=== PATIENT | female | born 1960 | race Caucasian/White ===

== ENCOUNTER 2016-11-08 16:19 | Emergency (ER) | payer OTHER ==
[~2016-11-08] VITALS: Ht 157.5 cm; Wt 80.0 kg
[~2016-11-08 16:19] MED LIST: ASPIRIN PAL; ATORVASTATIN
[2016-11-08 16:21] VITALS: Ht 157.5 cm; Wt 80.0 kg
[2016-11-08] MEDS ORDERED: SOD CHLORIDE 0.9% 1,000 ML IV STA (20:32)
[2016-11-08] MEDS ORDERED: morphine 2 MG INJ IV STA (20:32)
[2016-11-08] MEDS ORDERED: ONDANSETRON 4 MG INJ IV STA (20:32)
[2016-11-08 21:20] LABS: ADD SCAN DIFF NO
[2016-11-08 21:22] LABS: BASOPHILS % 0.5 % (0.0-2.0); EOSINOPHILS # 0.1 10^3/ul (0.0-0.5); EOSINOPHILS % 1.8 % (0.0-7.0); HEMATOCRIT 40.5 % (37.0-47.0); HEMOGLOBIN 13.5 g/dl (12.0-16.0); LYMPHOCYTES # 2.3 10^3/ul (0.8-2.9); LYMPHOCYTES % 38.5 % (15.0-51.0); MEAN CORPUSCULAR HEMOGLOBIN 31.3 pg (29.0-33.0); MEAN CORPUSCULAR HGB CONC 33.3 g/dl (32.0-37.0); MEAN PLATELET VOLUME 11.5 fl (7.4-10.4); MONOCYTE # 0.4 10^3/ul (0.3-0.9); MONOCYTES % 6.2 % (0.0-11.0); NEUTROPHIL # 3.2 10^3/ul (1.6-7.5); NEUTROPHILS % 52.8 % (39.0-77.0); PLATELET COUNT 209 10^3/UL (140-415); RED BLOOD COUNT 4.31 10^6/ul (4.20-5.40); RED CELL DISTRIBUTION WIDTH 12.2 % (11.5-14.5)
[2016-11-08 21:23] LABS: ADD UMIC NO; URINE BILIRUBIN (Dip) NEGATIVE (NEGATIVE); URINE BLOOD (Dip) NEGATIVE (NEGATIVE); URINE COLOR LT. YELLOW (YELLOW); URINE GLUCOSE (Dip) NEGATIVE (NEGATIVE); URINE KETONES (Dip) NEGATIVE (NEGATIVE); URINE LEUKOCYTE ESTERASE (Dip) NEGATIVE (NEGATIVE); URINE NITRITE (Dip) NEGATIVE (NEGATIVE); URINE TOTAL PROTEIN (Dip) NEGATIVE (NEGATIVE); URINE UROBILINOGEN (Dip) 0.2 E.U./dL (0.1-1.0)
[2016-11-08 21:38] LABS: ALBUMIN 5.2 g/dl (3.3-4.9); ALBUMIN/GLOBULIN RATIO 1.62; BILIRUBIN,INDIRECT 0.6 mg/dl (0-1.1); BILIRUBIN,TOTAL 0.6 mg/dl (0.2-1.3); CALCIUM 9.8 mg/dl (8.4-10.2); CREATININE 0.72 mg/dl (0.44-1.00); POTASSIUM 3.9 mmol/L (3.5-5.1); TOTAL PROTEIN 8.4 g/dl (6.1-8.1)
[2016-11-08] MEDS ORDERED: CALC-516 PO (22:11)
[2016-11-08] MEDS ORDERED: ATOR40TA68 PO (22:11)
[2016-11-08] MEDS ORDERED: MULT-853 PO (22:11)
[2016-11-08] MEDS ORDERED: ALEN70TA30 PO (22:11)
[2016-11-08] MEDS ORDERED: FLUT16SP17 NASAL (22:11)
[2016-11-08] MEDS ORDERED: ASPI81TA3 PO (22:11)
[2016-11-08] MEDS ORDERED: CETI5SOL PO (22:11)
[2016-11-08] MEDS ORDERED: MECL-77 PO (22:11)
--- NOTE | 2016-11-08 22:44 | RADRPT ---
PROCEDURE: CT ABDOMEN/PELVIS WITHOUT CONTRAST CLINICAL INDICATION: 56-year-old female with left sided abdominal pain. TECHNIQUE: The study was performed utilizing a [employer] VCT 64-slice CT scanner. Direct axia l sections were obtained through the abdomen and pelvis without the use of intravenous contrast mate rial. Sagittal and coronal reformations were obtained. One or more of the following dose reduction t echniques were utilized: automated exposure control, adjustment of the mA and/or kV according to pat ient's size or use of iterative reconstruction technique. The images were reviewed on a PACS workst [employer]. CTD/vol = 16.1 mGy; Total Exam DLP = 825.1 mGy-cm. COMPARISON: None. FINDINGS: The lung bases are unremarkable. There is no evidence for significant pleural effusion. The liver has a normal size and contour. There is a small ovoid cystic focus within the right lobe of the kaitlin er on axial image 3-25 measuring approximately 7 x 6 x 6 mm. There is an additional cystic focus wi thin the right lobe of the liver on axial image 3-40 measuring approximately 8 x 5 mm. There is a s ubtle small ovoid hypodense focus within the right lobe of the liver on axial image 3-20 measuring 3 x 3 mm which is too small to characterize by CT criteria. No intrahepatic nor extrahepatic biliary ductal dilatation is seen. The gallbladder demonstrates no wall thickening nor pericholecystic fluid . No biliary stones are evident. The pancreas is without areas of abnormal attenuation. The spleen is identified and has a normal size without abnormal density. The adrenal glands are unremarkable. T he right kidney is without abnormal density, calculi or obstruction. There is a nonobstructing calculus within the upper pole of the left kidney measuring approximately 8 x 8 x 5 mm. There are a couple of additional the adjacent nonobstructing left upper pole renal calculi. There is no eviden ce for hydroureteronephrosis. The urinary bladder contains urine. There is a small umbilical hernia with an opening of 5 x 7 mm containing fat. There is mild retained stool within the colon without o bstruction. The appendix is not visualized however there is no periappendiceal inflammatory changes . The uterus is elongated with a lobular appearance. There is dilated tubular structure within the right adnexal region which may represent unopacified bowel however hydrosalpinx cannot be totally e xcluded. This is best seen on coronal image 601-59. There are phleboliths within the pelvis. Ther e is no significant free fluid. The aortoiliac vessels are calcified but without aneurysmal dilatati on. Degenerative changes are present within the spine. Multiple small calcified bilateral gluteal s oft tissue injection granulomata are noted. IMPRESSION: 1. Small hepatic cysts. 2. Nonobstructing left upper pole renal calculi. 3. Small umbilical hernia containing fat. 4. Mild retained stool within the proximal colon without obstruction. 5. Right adnexal dilated tubular structure which may represent unopacified bowel however hydrosalpi nx cannot be excluded. Further evaluation with a pelvic ultrasound may be helpful. 6. Vascular calcifications. 7. Degenerative changes within the spine. .Robert Roman MD, Date Time Electronically viewed and signed by .Robert Roman MD, on 11/08/2016 22:43 .M/
--- NOTE | 2016-11-09 00:14 | RADRPT ---
PROCEDURE: US Pelvis. CLINICAL INDICATION: Pelvic structure noted on CT, pelvic pain TECHNIQUE: Multiple sonographic images of the pelvis were obtained utilizing a transabdominal and endovaginal technique. The images were reviewed on a PACS workstation. COMPARISON: CT abdomen and pelvis without contrast of 11/08/2016 FINDINGS: The uterus measures 8.8 x 3.2 x 5.6 cm and is unremarkable. The thickness of the endometrium equals 3.3 mm. The right ovary measures 2 x 1.4 x 2.3 cm and is unremarkable. The left ovary measures 2.9 x 1.7 x 1.1 cm and is unremarkable. Color flow and spectral analysis demonstrates normal arterial f low in both ovaries. No adnexal mass or free intrapelvic fluid is seen. No right hydrosalpinx is se en. Peristalsising bowel seen in the right adnexal region and elsewhere in the pelvis. IMPRESSION: No abnormality seen. Please see above. RPTAT: HJES .Hayden Johnson MD, MD Date Time Electronically viewed and signed by .Hayden Johnson MD, on 11/09/2016 00:14 .S/
--- NOTE | 2016-11-09 02:00 | ERA ---
ER Documentation Chief Complaint Date/Time DATE: 11/09/16 TIME: 01:58 Chief Complaint AP X 1 WEEK HPI This is a 56-year-old female, with abdominal pain for 1 week. Denies any fevers or chills. Denies any nausea vomiting. Denies any urinary symptoms. Pain is mild to moderate intensity. No change in bowel or bladder habits. No change in prandial habits. No trauma. No other current complaints. Pain does not localize. ROS All systems reviewed and are negative except as per history of present illness. Medications Home Meds Reported Medications Alendronate Sodium* (Fosamax*) 70 Mg Tablet, 70 MG PO Q7D, #4 TAB TAKES EVERY Tuesday11/08/16 Atorvastatin* (Atorvastatin*) 40 Mg Tablet, 40 MG PO QHS, #30 TAB 11/08/16 Fluticasone Propionate* (Fluticasone Propionate* Nasal) 50 Mcg/[place] - 16 Gm [place].susp, 2 SPRAYS NASAL DAILY, #1 BOTTLE TO EACH NOSTRIL 11/08/16 Cetirizine Hcl* (Cetirizine Hcl*) 5 Mg/5 Ml Solution, 10 MG PO DAILY, #300 ML 11/08/16 Aspirin* (Aspirin* Chew) 81 Mg Tab.chew, 81 MG PO DAILY, TAB.CHEW 11/08/16 Meclizine Hcl* (Meclizine Hcl*) 25 Mg Tablet, 25 MG PO Q8H Y for DIZZINESS, TAB 11/08/16 Calcium Carbonate/Vitamin D3 (OYSTER SHELL CALCIUM TABLET) 1 Each Tablet, 1 EACH PO, TAB 11/08/16 Multivits-Min/Iron/FA/Lutein (Centrum Silver Women Tablet) 1 Each Tablet, 1 EACH PO, TAB 11/08/16 Discontinued Reported Medications [Aspirin] No Conflict Check, 81 MG PAL 05/04/16 [Atorvastatin] No Conflict Check 05/04/16 Allergies Allergies: Coded Allergies: No Known Allergy (Unverified , 11/08/16) PMhx/Soc Medical and Surgical Hx: pt denies Medical Hx History of Surgery: Yes (c/section x1) Anesthesia Reaction: No Hx Neurological Disorder: No Hx Respiratory Disorders: No Hx Cardiac Disorders: No Hx Psychiatric Problems: No Hx Miscellaneous Medical Probl: Yes (HYPERLIPIDEMIA) Hx Alcohol Use: No Hx Substance Use: No Hx Tobacco Use: No Smoking Status: Never smoker Physical Exam Vitals Vital Signs Date Time Temp Pulse Resp B/P Pulse Ox O2 Delivery O2 Flow Rate FiO2 11/08/16 21:16 66 16 147/75 100 Room Air 11/08/16 16:21 99.1 83 18 146/92 99 Physical Exam Const: [] Head: Atraumatic Eyes: Normal Conjunctiva ENT: Normal External Ears, Nose and Mouth. Neck: Full range of motion..~ No meningismus. Resp: Clear to auscultation bilaterally Cardio: Regular rate and rhythm, no murmurs Abd: Soft, non tender, non distended. Normal bowel sounds Skin: No petechiae or rashes Back: No midline or flank tenderness Ext: No cyanosis, or edema Neur: Awake and alert Psych: Normal Mood and Affect Result Diagram: 11/08/16209911/08/16 2100 Results 24 hrs Laboratory Tests Test 11/08/16 21:00 White Blood Count 6.010^3/ul Red Blood Count 4.3110^6/ul Hemoglobin 13.5g/dl Hematocrit 40.5% Mean Corpuscular Volume 94.0fl Mean Corpuscular Hemoglobin 31.3pg Mean Corpuscular Hemoglobin Concent 33.3g/dl Red Cell Distribution Width 12.2% Platelet Count 10315^3/UL Mean Platelet Volume 11.5fl Neutrophils % 52.8% Lymphocytes % 38.5% Monocytes % 6.2% Eosinophils % 1.8% Basophils % 0.5% Nucleated Red Blood Cells % 0.0/100WBC Neutrophils # 3.210^3/ul Lymphocytes # 2.310^3/ul Monocytes # 0.410^3/ul Eosinophils # 0.110^3/ul Basophils # 0.010^3/ul Nucleated Red Blood Cells # 0.010^3/ul Urine Color LT. YELLOW Urine Clarity CLEAR Urine pH 5.0 Urine Specific Barrett 1.025 Urine Ketones NEGATIVE Urine Nitrite NEGATIVE Urine Bilirubin NEGATIVE Urine Urobilinogen 0.2 E.U./dL Urine Leukocyte Esterase NEGATIVE Urine Hemoglobin NEGATIVE Urine Glucose NEGATIVE% Urine Total Protein NEGATIVE Sodium Level 144mmol/L Potassium Level 3.9mmol/L Chloride Level 108mmol/L Carbon Dioxide Level 26mmol/L Anion Gap 14 Blood Urea Nitrogen 13mg/dl Creatinine 0.72mg/dl Glucose Level 81mg/dl Calcium Level 9.8mg/dl Total Bilirubin 0.6mg/dl Direct Bilirubin 0.00mg/dl Indirect Bilirubin 0.6mg/dl Aspartate Amino Transf (AST/SGOT) 42IU/L Alanine Aminotransferase (ALT/SGPT) 50IU/L Alkaline Phosphatase 82IU/L Total Protein 8.4g/dl Albumin 5.2g/dl Globulin 3.20g/dl Albumin/Globulin Ratio 1.62 Lipase 121U/L Current Medications Medications (Trade) Dose Ordered Sig/Theresa Route PRN Reason Start Time Stop Time Status Last Admin Dose Admin Sodium Chloride (NS) 1,000 ml @ 1,000 mls/hr Q1H STAT IV 11/08/16 20:32 11/08/16 21:31 DC 11/08/16 21:04 Morphine Sulfate (morphine) 2 mg ONCE STAT IV 11/08/16 20:32 11/08/16 20:34 DC 11/08/16 21:04 Ondansetron HCl (Zofran Inj) 4 mg ONCE STAT IV 11/08/16 20:32 11/08/16 20:34 DC 11/08/16 21:04 Procedures/MDM Medical decision-making: Patient has a nonsurgical abdomen on serial abdominal exams here. She had questionable hydrosalpinx on CT, but this was shown to be not the case on pelvic ultrasound. At this point she has not differentiated abdominal pain. She will be discharged home with tramadol and Zofran. She is to follow-up in 8 hours for serial abdominal exams. Return sooner for any return of or worsening of symptoms. Departure Diagnosis: Primary Impression: Abdominal pain Qualified Code: R10.84 - Generalized abdominal pain Condition: Stable ASAD ORTEGA Nov 09, 2016 02:00
[2016-11-09] MEDS ORDERED: ONDA4TAB14 PO (02:01)
[2016-11-09] MEDS ORDERED: TRAM50TA2 PO (02:01)
[2016-11-09 02:14] VITALS: BP 113/64; PULSE 65; RESP 16
== END 2016-11-09 02:16 | disposition home or self-care (01) ==
LOC: E/R 16:19
DX: R10.84 Generalized abdominal pain (principal); R40.2252 Coma scale, best verbal response, oriented, at arrival to emergency department; R40.2142 Coma scale, eyes open, spontaneous, at arrival to emergency department; R40.2362 Coma scale, best motor response, obeys commands, at arrival to emergency department; Z79.82 Long term (current) use of aspirin
CPT/HCPCS: 74176; 76830; 76856; 80053; 81003; 83690; 85025; J2270; J2405; J7030; 36415; 96374; 96375

== ENCOUNTER 2017-02-14 05:19 | Day surgery (SDC) | payer OTHER ==
[2017-02-14] VITALS (14 sets, daily range): BP systolic 88–127; BP diastolic 58–84; PULSE 54–66; RESP 11–18; Ht 154.9 cm; Wt 65.7 kg
[~2017-02-14] VITALS: Ht 154.9 cm; Wt 65.7 kg
[~2017-02-14 05:19] MED LIST changes: +ALEN70TA30 PO; +ASPI81TA3 PO; -ASPIRIN PAL; +ATOR40TA68 PO; -ATORVASTATIN; +CALC-516 PO; +CETI5SOL PO; +FLUT16SP17 NASAL; +MECL-77 PO; +MULT-853 PO; +ONDA4TAB14 PO; +TRAM50TA2 PO
[2017-02-14] MEDS ORDERED: SOD CHLORIDE 0.9% 1,000 ML IV SCH (06:00)
[2017-02-14] MEDS ORDERED: CEFAZOLIN 2 GM/50 ML (PMX) 50 ML IVPB SCH (06:00)
--- NOTE | 2017-02-14 06:40 | RADRPT ---
PROCEDURE: XR Chest. CLINICAL INDICATION: Preop, back mass TECHNIQUE: AP Portable chest. COMPARISON: No pertinent prior examinations were submitted for comparison. FINDINGS: The cardiomediastinal silhouette is normal. The aorta is calcified and tortuous. No focal consolidat ion, pleural effusion or pneumothorax is seen. The osseous structures are intact. IMPRESSION: No radiographic evidence of acute cardiopulmonary disease. Aortic atherosclerosis. Physician Megan Date Time Electronically viewed and signed by Alicja Metzger Physician on 02/14/2017 06:39 CS/
[2017-02-14 06:46] LABS: BASOPHILS % 0.8 % (0.0-2.0); EOSINOPHILS # 0.1 10^3/ul (0.0-0.5); EOSINOPHILS % 2.6 % (0.0-7.0); HEMATOCRIT 36.3 % (37.0-47.0); HEMOGLOBIN 12.3 g/dl (12.0-16.0); LYMPHOCYTES # 2.4 10^3/ul (0.8-2.9); LYMPHOCYTES % 47.7 % (15.0-51.0); MEAN CORPUSCULAR HEMOGLOBIN 32.2 pg (29.0-33.0); MEAN CORPUSCULAR HGB CONC 33.9 g/dl (32.0-37.0); MEAN PLATELET VOLUME 12.1 fl (7.4-10.4); MONOCYTE # 0.4 10^3/ul (0.3-0.9); MONOCYTES % 7.9 % (0.0-11.0); NEUTROPHILS % 40.8 % (39.0-77.0); PLATELET COUNT 170 10^3/UL (140-415); RED BLOOD COUNT 3.82 10^6/ul (4.20-5.40); RED CELL DISTRIBUTION WIDTH 12.9 % (11.5-14.5); WHITE BLOOD COUNT 4.9 10^3/ul (4.8-10.8)
[2017-02-14] MEDS ORDERED: CEFAZOLIN 1 GM INJ ONE (07:00)
[2017-02-14] MEDS ORDERED: SEVOFLURANE 15 MIN ONE (07:00)
[2017-02-14] MEDS ORDERED: LIDOCAINE 2% (MDV) 20 ML INJ ONE (07:07)
[2017-02-14] MEDS ORDERED: BUPIVACAINE 0.5% (SDV) 30 ML INJ ONE (07:07)
[2017-02-14 07:15] LABS: INR 1.02; PROTIME 13.4 Sec (12.2-14.2)
[2017-02-14 07:16] LABS: PARTIAL THROMBOPLASTIN TIME 34.9 Sec (25.0-35.0)
[2017-02-14 07:24] LABS: ALBUMIN 3.8 g/dl (3.3-4.9); ALBUMIN/GLOBULIN RATIO 1.22; BILIRUBIN,INDIRECT 0.4 mg/dl (0-1.1); BILIRUBIN,TOTAL 0.4 mg/dl (0.2-1.3); TOTAL PROTEIN 6.9 g/dl (6.1-8.1)
[2017-02-14 07:28] LABS: CALCIUM 9.3 mg/dl (8.4-10.2); CREATININE 0.66 mg/dl (0.44-1.00); POTASSIUM 4.4 mmol/L (3.5-5.1)
[2017-02-14] MEDS ORDERED: FENTAnyl 50 MCG/ML VIAL ONE (07:29)
[2017-02-14] MEDS ORDERED: BUPIVACAINE 0.25% (MPF) 30 ML INJ ONE (07:40)
[2017-02-14] MEDS ORDERED: LIDOCAINE 2% (SDV) 5 ML INJ ONE (07:48)
[2017-02-14] MEDS ORDERED: PROPOFOL 20 ML ONE (07:48)
[2017-02-14] MEDS ORDERED: DEXAMETHASONE 4 MG/ML 1 ML INJ ONE (07:49)
[2017-02-14] MEDS ORDERED: ONDANSETRON 4 MG INJ ONE (07:49)
[2017-02-14] MEDS ORDERED: HYDROCODONE/APAP (5/325) TAB PO ONE (08:00)
--- NOTE | 2017-02-14 08:01 | OPR ---
Date/Time of Note Date/Time of Note DATE: 02/14/17 TIME: 07:55 Operative Report Procedure Date: Feb 14, 2017 Preoperative Diagnosis right upper back mass Postoperative Diagnosis same Operation Performed 1. excision of right upper back mass 4 cm mass and 4 cm incision 2. localized adjacent tissue transfer with the use of skin flaps 8 sq cm defect 3. therapeutic injection of subcutaneous marcaine cpt code 89154 Surgeon Carlo Munguia Anesthesia Type: general Estimated Blood Loss: 0 - 10 ml's Specimen: none Specimens right upper back mass Grafts/Implants: none Complications: no Indications This is a 56-year-old female with right upper back mass. She requests surgical excision. Risks alternatives benefits personally discussed the patient. Patient expresses understanding consents to the operation. Procedure Description Patient is taken to the OR and prepped and draped in usual sterile fashion. Surgical timeout was performed. IV antibiotics were given. Transverse incision was made over the right upper back mass with a 15 blade. Dissection cautery was carried onto the mass and circumferential excise including part of the skin. Hemostasis is established. Irrigation is used. Due to the large tissue defect localized adjacent tissue transfer with these of skin flaps were performed. Multilayer closure with interrupted 3-0 Vicryl and skin allison. There appears to contains Marcaine is injected throughout the incision site. Dressings were applied. Kristine MUNGUIA Feb 14, 2017 08:01
[2017-02-14] MEDS ORDERED: METOCLOPRAMIDE 10 MG INJ IV PRN (08:30)
[2017-02-14] MEDS ORDERED: KETOROLAC 30 MG INJ IV PRN (08:30)
[2017-02-14] MEDS ORDERED: LABETALOL HCL 20MG INJ IV PRN (08:30)
[2017-02-14] MEDS ORDERED: ONDANSETRON 4 MG INJ IV PRN (08:30)
[2017-02-14] MEDS ORDERED: OXYCODONE/ACETAMINOPHEN (5/325) TAB PO PRN ×2 (08:30)
[2017-02-14] MEDS ORDERED: MEPERIDINE 25 MG INJ IV PRN (08:30)
[2017-02-14] MEDS ORDERED: hydrALAzine 20 MG INJ IV PRN (08:30)
[2017-02-14] MEDS ORDERED: EPHEDrine SULFATE 50 MG/5 ML SYG IV PRN (08:30)
[2017-02-14] MEDS ORDERED: FENTAnyl 50 MCG/ML VIAL IV PRN ×3 (08:30)
[2017-02-14] MEDS ORDERED: DIPHENHYDRAMINE 50 MG INJ IV PRN (08:30)
--- NOTE | 2017-02-16 00:12 | RADRPT ---
Vent Rate: 63 bpm RR Interval: 0 msec MT Interval: 162 msec QRS Duration: 82 msec QT Interval: 418 msec QTC Interval: 427 msec P-R-T [place]: 56 - 48 - 64 degrees Normal sinus rhythm Normal ECG Electronically Signed By: Juan Mariee [id number]
== END 2017-02-14 09:36 | disposition home or self-care (01) ==
LOC: SDS 05:19
PROVIDERS: ATTEND Surgery
DX: L72.0 Epidermal cyst (principal); E11.9 Type 2 diabetes mellitus without complications
CPT/HCPCS: 14000; 71010; 80053; 82962; 85025; 85610; 85730; 88307; 93005; J0690; J1100; J2405; J3010; Z7512; Z7610

== ENCOUNTER 2017-12-21 05:59 | Day surgery (SDC) | END 2017-12-21 10:40 | disposition home or self-care (01) ==

== ENCOUNTER 2018-10-06 19:06 | Emergency (ER) | payer OTHER ==
[~2018-10-06] VITALS: Ht 157.5 cm; Wt 68.0 kg
[~2018-10-06 19:06] MED LIST changes: -ALEN70TA30 PO; +ALEN70TA5 PO; -ASPI81TA3 PO; -CALC-516 PO; +CALC1TAB79 PO; -MECL-77 PO; -ONDA4TAB14 PO; -TRAM50TA2 PO
[2018-10-06 19:08] VITALS: Ht 157.5 cm; Wt 68.0 kg
[2018-10-06] MEDS ORDERED: D-ME473S2 PO (20:01)
[2018-10-06] MEDS ORDERED: BENZ200C68 PO (20:01)
[2018-10-06 20:19] VITALS: BP 148/67; PULSE 82; RESP 20
--- NOTE | 2018-10-07 01:40 | ERD ---
ER Documentation Chief Complaint Chief Complaint throat pain, cough x1 week HPI 58-year-old female with no significant past medical history presenting to the emergency department complaining of intermittent cough for the past 1 week. She describes a cough is dry associated with the sore throat. She took NyQuil at home with some relief. Symptoms are overall worse during the night. She denies any fevers, chills, abdominal pain, nausea, vomiting, diarrhea, sick contacts, or other symptoms currently. ROS All systems reviewed and are negative except as per history of present illness. Medications Home Meds Active Scripts Dextromethorphan Hb-Promethazine Hcl* (Promethazine DM* Syrup) 473 Ml Syrup, 5 ML PO Q6 PRN for COUGH, #120 ML Prov:ASAD ARAUZ PA-C 10/06/18 Benzonatate* (Benzonatate*) 200 Mg Capsule, 200 MG PO TID PRN for COUGH, #15 CAP Prov:ASAD ARAUZ PA-C 10/06/18 Reported Medications Calcium Carbonate/Vitamin D3 ([place]co 500+D Tablet) 1 Each Tablet, 1 EACH PO BID, TAB 12/21/17 Alendronate Sodium* (Fosamax*) 70 Mg Tablet, 70 MG PO Q7D, #4 TAB 12/21/17 Atorvastatin* (Atorvastatin*) 40 Mg Tablet, 40 MG PO QHS, #30 TAB 11/08/16 Fluticasone Propionate* (Fluticasone Propionate* Nasal) 50 Mcg/[place] - 16 Gm [place].susp, 2 SPRAYS NASAL DAILY, #1 BOTTLE TO EACH NOSTRIL 11/08/16 Cetirizine Hcl* (Cetirizine Hcl*) 5 Mg/5 Ml Solution, 10 MG PO DAILY, #300 ML 11/08/16 Multivits-Min/Iron/FA/Lutein (Centrum Silver Women Tablet) 1 Each Tablet, 1 EACH PO, TAB 11/08/16 Allergies Allergies: Coded Allergies: No Known Allergy (Unverified , 12/21/17) PMhx/Soc History of Surgery: Yes (mass removal from back, c section. ) Anesthesia Reaction: No Hx Neurological Disorder: No Hx Respiratory Disorders: No Hx Cardiac Disorders: Yes (hich cholesterol ) Hx Psychiatric Problems: No Hx Miscellaneous Medical Probl: No Hx Alcohol Use: No Hx Substance Use: No Hx Tobacco Use: No Smoking Status: Never smoker FmHx Family History: No diabetes Physical Exam Vitals Vital Signs Date Temp Pulse Resp B/P (MAP) Pulse Ox O2 O2 Flow FiO2 Time Delivery Rate 10/06/18 98.7 82 20 148/67 99 Room Air 20:19 (94) 10/06/18 97.2 79 20 167/88 99 19:08 (114) Physical Exam Const: No acute distress Head: Atraumatic Eyes: Normal Conjunctiva ENT: Normal External Ears, Nose and Mouth. Neck: Full range of motion. No meningismus. Resp: Clear to auscultation bilaterally Cardio: Regular rate and rhythm, no murmurs Skin: No petechiae or rashes Back: No midline or flank tenderness Ext: No cyanosis, or edema Neur: Awake and alert Psych: Normal Mood and Affect Procedures/MDM 50-year-old female presenting to the emergency department complaining of cough. Patient is nontoxic, well-appearing, afebrile. The patient's clinical presentation is very consistent with an acute viral syndrome. The patient does not exhibit any clinical signs or symptoms concerning for serious bacterial infection or systemic illness. Based on history and clinical exam findings the patient does not appear to have evidence of pneumonia, strep pharyngitis, urinary tract infection, bacteremia, sepsis, or meningitis. For these reasons I do not believe it is necessary to obtain laboratory testing or diagnostic imaging. I believe it would be appropriate for symptom control, and close outpatient primary care follow-up. Based on patient's history of present illness and physical examination the decision was made to discharge. There is no evidence of life threatening injuries or illnesses at this time. On re-examination, patient resting in no distress, stable vital signs, reports feeling better and safe for discharge with outpatient follow up with PMD in 1-2 days. Patient given return precautions. Patient's blood pressure was elevated (>120/80) but appears stable without evidence of hypertension emergency or urgency. The patient is to follow-up and pursue outpatient monitoring and therapy with their primary care physician within 1 week and return immediately if they have any new, worsening, or concerning symptoms. Disclaimer: Inadvertent spelling and grammatical errors are likely due to EHR/dictation software use and do not reflect on the overall quality of patient care. Also, please note that the electronic time recorded on this note does not necessarily reflect the actual time of the patient encounter. Departure Diagnosis: Primary Impression: Cough Condition: Fair Patient Instructions: Cough, Chronic, Uncertain Cause, (Adult) [facility]errals: [facility] Usted se eisenberg hecho un examen mdico de control que le indica que no est en angelica condicin que requiera tratamiento urgente en el Departamento de Emergencia. Un estudio ms profundo y el tratamiento de huynh condicin pueden esperar sin ningn riesgo hasta que usted sea atendida/o en el consultorio de huynh mdico o angelica clnica. Es responsabilidad suya arreglar angelica znia para el seguimiento del oli. MANEJO DE CONDICIONES NO URGENTES EN EL FUTURO 1) Si usted tiene un mdico de atencin primaria: Usted debera llamar a huynh mdico de atencin primaria antes de venir al departamento de emergencia. Despus de las horas de consultorio, huynh doctor o huynh asociado/a est disponible por telfono. El mdico o enfermero de mason en el servicio telefnico puede asesorarle por miguel angel medio para atender el problema, o oli contrario se puede programar angelica zina. 2) Si usted no tiene un mdico de atencin primaria: Llame al mdico o clnica de referencia que aparece abajo mary lou las horas de consultorio para hacer angelica zina para que le vean. CLINICAS: [facility] [phone] [facility] [phone] [facility] [phone] [place] [phone] [place] [phone] [facility]. [phone] Additional Instructions: Llame al doctor MAANA y jann angelica ZINA PARA DENTRO DE 1-2 BARRON.Dgale a la secretaria que nosotros le instruimos hacer esta zina.Avise o llame si huynh condicin se empeora antes de la zina. Regresa aqui si peor o no mejor. ASAD ARAUZ PA-C October 07, 2018 01:40
== END 2018-10-06 20:20 | disposition home or self-care (01) ==
LOC: FTE 19:06
DX: R05 Cough (principal)
CPT/HCPCS: 99282